=== PATIENT | female | born 1995 | race African-American/Black ===

== ENCOUNTER 2023-02-09 23:18 | Emergency (ER) | payer MEDICAID ==
[~2023-02-09] VITALS: Ht 157.5 cm; Wt 68.0 kg
[2023-02-09] MEDS ORDERED: ACETAMINOPHEN ES 500 MG TABLET ONE (23:29)
[2023-02-09] MEDS ORDERED: ACETAMINOPHEN 325 MG TABLET PO ONE (23:30)
[2023-02-10] MEDS ORDERED: IV NS 0.9% 1,000 ML IV ONE
[2023-02-10 00:10] LABS: BASOPHILS # (AUTO) 0.1 K/uL (0.0-0.2); BASOPHILS % (AUTO) 1.7 % (0.0-2.0); EOSINOPHILS # (AUTO) 0.3 K/uL (0.0-0.7); EOSINOPHILS % (AUTO) 3.8 % (0.0-6.0); HEMATOCRIT 42 % (33-45); HEMOGLOBIN 13.8 g/dL (11.5-14.8); LYMPHOCYTES # (AUTO) 1.8 K/uL (0.8-4.8); LYMPHOCYTES % (AUTO) 26.1 % (20.0-44.0); MEAN CORPUSCULAR HEMOGLOBIN 28 PG (26.0-33.0); MEAN CORPUSCULAR HGB CONC 33 g/dl (31.0-36.0); MEAN CORPUSCULAR VOLUME 87 fL (82-100); MONOCYTES # (AUTO) 0.4 K/uL (0.1-1.30); MONOCYTES % (AUTO) 5.2 % (2.0-12.0); NEUTROPHILS # (AUTO) 4.4 K/uL (1.8-8.9); NEUTROPHILS % (AUTO) 63.2 % (43.0-81.0); PLATELET COUNT (AUTO) 260 K/uL (150-450); RED BLOOD CELL COUNT(AUTO) 4.89 MIL/uL (4.0-5.2); RED CELL DISTRIBUTION WIDTH 14.5 % (11.5-15.0)
[2023-02-10 00:31] LABS: CALCIUM, SERUM 9.8 mg/dL (8.5-10.1); CREATININE 0.8 mg/dL (0.6-1.3); POTASSIUM 3.4 mmol/L (3.5-5.1)
[2023-02-10] MEDS ORDERED: CT SWABBABLE VALVE TRANS SET 1 EA INFUS.SET MC ONE (00:38)
[2023-02-10] MEDS ORDERED: MORPHINE SULFATE INJ 2 MG/ML DISP.SYRIN IV ONE (01:00)
[2023-02-10] MEDS ORDERED: MORPHINE SULFATE INJ 4 MG/ML DISP.SYRIN ONE (01:12)
[2023-02-10 02:19] VITALS: TEMP 98.4
[2023-02-10 02:24] VITALS: BP 102/67; O2SAT 99
[2023-02-10 02:25] LABS: INR 1.03 (0.91-1.10); PARTIAL THROMBOPLASTIN TIME 27.9 SEC (24.3-34.3); PROTHROMBIN TIME 10.9 SECS (9.2-11.1)
== END 2023-02-10 02:49 ==
LOC: ER 23:27 → EDBD 23:27 → ER 02-10 02:49
DX: S36.113A Laceration of liver, unspecified degree, initial encounter (principal); S90.32XA Contusion of left foot, initial encounter; K66.1 Hemoperitoneum; R10.2 Pelvic and perineal pain; R06.02 Shortness of breath; V89.2XXA Person injured in unspecified motor-vehicle accident, traffic, initial encounter; Y93.89 Activity, other specified; Y92.89 Other specified places as the place of occurrence of the external cause; Y99.8 Other external cause status
CPT/HCPCS: 99291; 74177; 71045; 96361; 73630; 85025; 80048; 85610; 85730; 36415 ×2; 86850; 84702; 96374; J7030; J7050; Q9967; J2270

== ENCOUNTER 2023-09-17 16:19 | Emergency (ER) | payer MEDICAID, OTHER ==
[~2023-09-17] VITALS: Ht 157.5 cm; Wt 59.4 kg
[2023-09-17] MEDS ORDERED: ACETAMINOPHEN 325 MG TABLET ONE ×3 (17:32→21:33)
[2023-09-17] MEDS: ACETAMINOPHEN 325 MG TABLET PO ONE ×2 (17:37→21:34)
[2023-09-17 21:39] VITALS: BP 120/70; TEMP 98; O2SAT 99
== END 2023-09-17 21:40 | disposition home or self-care (01) ==
LOC: ER 16:21
DX: S01.01XA Laceration without foreign body of scalp, initial encounter (principal); R07.81 Pleurodynia; M25.532 Pain in left wrist; M25.531 Pain in right wrist; M25.562 Pain in left knee; M25.561 Pain in right knee; R51.9 Headache, unspecified; Z60.2 Problems related to living alone; W05.1XXA Fall from non-moving nonmotorized scooter, initial encounter; Y93.89 Activity, other specified; Y92.488 Other paved roadways as the place of occurrence of the external cause; Y99.8 Other external cause status
CPT/HCPCS: 12002; 70450; 71100; 73060; 73110; 73562; 73590; 99284; A6403